=== PATIENT | female | born 1960 ===

== ENCOUNTER 2024-04-23 15:49 | Outpatient (REF) | payer OTHER, SELFPAY ==
--- NOTE | 2024-04-23 15:30 | PAPFT_PTH ---
PATIENT: ISRAEL GUERRA LOC: [facility] U#:[id number] AGE/SX: 63/F ROOM: RE04/23/[address]: Gisela Pack MD : 1960 BED: DIS: 04/23/2024 SPEC #: [id number] RECD: 04/23/24 18:13 STATUS: [email or web address] REQ #: [id number] SAM: 04/23/24 15:[address]: Gisela Pack DEPT: [facility] Cytology RECD BY: Karrie Webb ENTERED: 04/23/24 18:13 SP TYPE: PAPFT OTHR DR: Unknown,Unknown Tissues: 1 - CX/ENDOCX FOR PAP SMEARS Procedures: PAP THIN PREP/[facility] Screening HPV DNA PROBE Comments: [id number]
== END 2024-04-23 15:50 | disposition home or self-care (01) ==
LOC: LBN 15:49
PROVIDERS: Visit Provider Obstetrics & Gynecology
DX: Z12.4 Encounter for screening for malignant neoplasm of cervix (principal); Z11.51 Encounter for screening for human papillomavirus (HPV)
CPT/HCPCS: 88142; 87624